=== PATIENT | male | born 1955 | race American Indian/Alaskan Native ===

== ENCOUNTER 2018-01-13 14:11 | Emergency (ER) | payer SELFPAY ==
--- NOTE | 2018-01-13 17:18 | Emergency Department Report ---
HPI - General Chief Complaint: Shoulder Injury Time Seen by Provider: 01/13/18 16:46 - HPI HPI: 62-year-old [place] male presents to the emergency department with complaint of "I think I broke my collar bone." He was at a roller skating rink with the grandchildren when he lost his balance and fell on top of a roller skating field trainer which resembles a walker. He has some decreased range of motion to the right upper extremity secondary to his pain. He also has complaint of some left big toe pain. He has a history of hypertension. He did not take anything for her symptoms prior to presentation. ED Past Medical Hx - Past Medical History Hx Hypertension: Yes - Surgical History Additional Surgical History: thyroid - Medications Home Medications: Home Medications Medication Instructions Recorded Confirmed Last Taken Type HYDROcodone/APAP 5-325 [[place] 1 each PO Q6H PRN #12 tablet 01/13/18 Unknown Rx 5-325 mg TAB] ED Review of Systems ROS: Stated complaint: ALOT OF PAIN ALL OVER Other details as noted in HPI Comment: All other systems reviewed and negative Constitutional: denies: chills, fever Eyes: denies: eye pain, eye discharge, vision change ENT: denies: ear pain, throat pain Respiratory: denies: cough, shortness of breath, wheezing Cardiovascular: denies: chest pain, palpitations Gastrointestinal: denies: abdominal pain, nausea, diarrhea Genitourinary: denies: urgency, dysuria Musculoskeletal: arthralgia. denies: back pain Skin: denies: rash, lesions Neurological: denies: headache, numbness Physical Exam - Physical Exam Vital Signs: Vital Signs 01/13/18 14:21 Temperature 98.7 F Pulse Rate 78 Respiratory 16 Rate Blood Pressure 160/104 O2 Sat by Pulse 99 Oximetry Physical Exam: GENERAL: The patient is well-developed well-nourished. HENT: Normocephalic. Atraumatic. Patient has moist mucous membranes. EYES: Extraocular motions are intact. NECK: Supple. Trachea is midline. CHEST/LUNGS: Clear to auscultation. There is no respiratory distress noted. HEART/CARDIOVASCULAR: Regular. There is no tachycardia. There is no murmur. ABDOMEN: Abdomen is soft, nontender. Patient has normal bowel sounds. SKIN: Skin is warm and dry. NEURO: The patient is awake, alert, and oriented. The patient is cooperative. The patient has no focal neurologic deficits. The patient has normal speech and gait. MUSCULOSKELETAL: There is no tenderness to palpation over the shoulder but there is some reproducible tenderness along the right clavicle. There is no skin tenting. Decreased range of motion of the right upper extremity secondary to pain. Radial pulse +2 over 4 to the affected right upper extremity. ED Course Vital Signs 01/13/18 14:21 Temperature 98.7 F Pulse Rate 78 Respiratory 16 Rate Blood Pressure 160/104 O2 Sat by Pulse 99 Oximetry - Consultations Consultation #1: 01/13/18 17:43 I spoke with the orthopedist on-call, Dr. Schumacher, who is aware of the patient's midshaft right clavicular fracture and comminution and the fact that he is neurovascularly intact. Dr. Schumacher agrees with the plan for a shoulder immobilizer and follow up in the office in the next day or so. ED Medical Decision Making - Radiology Data Radiology results: image reviewed interpreted by me: X-ray of the right shoulder does not show any fracture, does occasionally acute process of the humerus. X-ray of the clavicle shows a midshaft comminuted fracture with some displacement. - Medical Decision Making Patient presents with some right shoulder and clavicle pain after falling earlier today onto that area. X-ray shows a midshaft clavicle fracture. It is comminuted and has some displacement but it is closed and there is no skin tenting. Patient is otherwise neurovascularly intact. He was placed in a shoulder immobilizer. The orthopedist on-call was contacted who says the patient can be safely discharged home for outpatient follow-up. Patient was given multiple orthopedic referrals and a prescription for pain medication. He understands to return to the emergency department with any worsening of his symptoms, tenting of the skin, numbness or any acute distress. Patient does have some elevated blood pressure but has a history of hypertension and has not taken his blood pressure medications today. He will go home and take his blood pressure medication - Differential Diagnosis clavicle fracture, shoulder dislocation, contusion, sprain, strain Critical Care Time: No Critical care attestation.: If time is entered above; I have spent that time in minutes in the direct care of this critically ill patient, excluding procedure time. ED Disposition Clinical Impression: Elevated blood pressure reading Clavicle fracture, shaft Qualifiers: Encounter type: initial encounter Fracture type: closed Fracture alignment: displaced Laterality: right Qualified Code(s): S42.021A - Displaced fracture of shaft of right clavicle, initial encounter for closed fracture Disposition: TO HOME OR SELFCARE Is pt being admited?: No Condition: Stable Instructions: Clavicle Fracture (ED), Hypertension (ED) Additional Instructions: Please follow up with an orthopedist in the next few days regarding your clavicle fracture. I recommend remaining in the shoulder immobilizer until follow-up with the orthopedist. Return to the emergency Department with any worsening of your symptoms or with any acute distress. You have been prescribed a medication that is sedating and therefore should not be taken prior to driving, working, and responsible for children and in no way should be mixed with alcohol of any quantity. Prescriptions: HYDROcodone/APAP 5-325 [Needmore 5-325 mg TAB] 1 each PO Q6H PRN #12 tablet PRN Reason: Pain , Severe (7-10) Referrals: AMPARO SCHUMACHER MD [Staff Physician] - [facility] [Provider Group] - [place] Forms: Work/School Release Form(ED) Time of Disposition: 17:47
[2018-01-13] MEDS ORDERED: NORCO 5/325 PO ONE (17:42)
--- NOTE | 2018-01-13 18:25 | XRay Report ---
FINAL REPORT EXAM: XR CLAVICLE RT HISTORY: possible broken clavicle . Patient fell during rollerblading with prior history of shoulder surgery 2010 TECHNIQUE: AP and angled views of the right clavicle PRIORS: None. FINDINGS: There is an acute comminuted fracture involving the midshaft of the right clavicle. The distal fragment is displaced caudally and overrides the proximal fragment. There is no evidence of dislocation. Sternoclavicular and acromioclavicular joints are maintained. The bony mineralization is normal. IMPRESSION: Acute comminuted midshaft right clavicle fracture with overriding of the fracture fragments.
--- NOTE | 2018-01-13 18:28 | XRay Report ---
FINAL REPORT EXAM: XR SHOULDER 2+V RT HISTORY: pain after a fall TECHNIQUE: AP, Y, and oblique views of the right shoulder PRIORS: None. Correlation with right clavicle x-rays from the same date was also made. FINDINGS: There is a comminuted midshaft right clavicle fracture with overriding of the fracture fragments. With regards to the shoulder, there is linear lucency through the distal acromion which may represent an acute nondisplaced fracture. There is no evidence of dislocation. Mild narrowing of the glenohumeral joint is seen with spurring off the inferior aspect. Bony mineralization is normal. IMPRESSION: 1. Possible nondisplaced fracture involving the distal acromion 2. Comminuted midshaft right clavicle fracture with overriding the fracture fragments 3. Osteoarthritis in the glenohumeral joint.
[2018-01-13 18:40] VITALS: BP 180/94
== END 2018-01-13 18:28 | disposition home or self-care (01) ==
LOC: ED 14:11
DX: S42.021A Displaced fracture of shaft of right clavicle, initial encounter for closed fracture (principal); M79.675 Pain in left toe(s); I10 Essential (primary) hypertension; W18.30XA Fall on same level, unspecified, initial encounter; Y93.89 Activity, other specified; Y92.89 Other specified places as the place of occurrence of the external cause; Y99.8 Other external cause status
CPT/HCPCS: 99284